=== PATIENT | female | born 1950 | race Hispanic/Latino ===

== ENCOUNTER 2018-02-20 22:11 | Emergency (ER) | payer MEDICARE, OTHER ==
[~2018-02-20] VITALS: Ht 160 cm; Wt 72.6 kg
[2018-02-20] MEDS ORDERED: PENICILLIN G BENZATHINE 600000 UNIT/1 ML IM STA ×2 (22:39→23:52)
[2018-02-20] MEDS ORDERED: TETANUS/DIPHTHERIA TOX ADULT 0.5 ML SYR IM ONE (22:45)
[2018-02-21] MEDS ORDERED: TETANUS/DIPHTHERIA TOX ADULT 0.5 ML SYR IM ONE
== END 2018-02-21 00:45 | disposition home or self-care (01) ==
LOC: FSED 22:11
DX: K08.89 Other specified disorders of teeth and supporting structures (principal); K02.9 Dental caries, unspecified
CPT/HCPCS: 99283

== ENCOUNTER 2023-01-10 10:50 | Emergency (ER) | payer MEDICARE ==
[~2023-01-10] VITALS: Ht 170.2 cm; Wt 73.9 kg
[2023-01-10] MEDS ORDERED: KETOROLAC TROMETHAMINE 30 MG/ML VIAL IM STA (11:05)
[2023-01-10] MEDS ORDERED: TRAMADOL HCL 50 MG TAB PO ONE (11:15)
[2023-01-10] MEDS ORDERED: KETOROLAC TROMETHAMINE 30 MG/ML VIAL ONE (11:31)
[2023-01-10] MEDS ORDERED: BACLOFEN10 MG PO (12:12)
[2023-01-10] MEDS ORDERED: PREDNISONE20 MG PO (12:13)
[2023-01-10] MEDS ORDERED: KETOROLAC TROME10 MG PO (12:15)
[2023-01-10] MEDS ORDERED: PEPCID20 MG PO (12:16)
[2023-01-10 12:22] VITALS: BP 168/77; PULSE 74; RESP 17; O2SAT 99
== END 2023-01-10 12:24 | disposition home or self-care (01) ==
LOC: FSED 11:02
DX: M25.551 Pain in right hip (principal); M54.31 Sciatica, right side; H40.9 Unspecified glaucoma
CPT/HCPCS: 72100; 73502; 99283; J1885